=== PATIENT | male | born 1965 | race Caucasian/White ===

== ENCOUNTER 2021-07-04 09:25 | Outpatient (CLI) | payer BC, SELFPAY ==
--- NOTE | 2021-07-04 09:00 | DI.RAD_ITS ---
Exam(s) XR KNEE LT 3V AP,LAT,ANITA EXAM: XR KNEE LT 3V AP,LAT,ANITA CLINICAL HISTORY: L knee pain. TECHNIQUE: 2D digital imaging was performed. COMPARISON: No exams were available for comparison FINDINGS: BONES: No acute fracture is present. No bony destructive lesion is seen. JOINTS: The knee is normally aligned. No joint effusion is seen. Moderate narrowing medial femoral tibial joint and periarticular spurring. Articular spurring, mild patellofemoral joint. SOFT TISSUE: Normal. 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 DATA REPOSITORY: RADIATION DOSE DELIVERED:
== END 2021-07-04 09:26 | disposition home or self-care (01) ==
LOC: DIORS 09:26
PROVIDERS: PCP Family Medicine; Referring Provider Family Medicine; Visit Provider Physician Assistant
DX: M25.562 Pain in left knee (principal); M17.12 Unilateral primary osteoarthritis, left knee
CPT/HCPCS: 73562

== ENCOUNTER 2021-07-22 02:27 | Outpatient (CLI) | payer BC, SELFPAY ==
--- NOTE | 2021-07-22 07:30 | DI.MRI_ITS ---
Exam(s) MR LOWER JOINT LT WO EXAM: MR LOWER JOINT LT WO CLINICAL HISTORY: KNEE PAIN,TEAR OF MEDIAL MENISCUS,S83.242A. TECHNIQUE: Multiplanar multisequence MRI was performed. COMPARISON: CR XR KNEE LT 3V AP,LAT,ANITA from 07/04/2021 FINDINGS: BONES: No fractures identified. Mild marrow edema is seen in the lateral aspect of the lateral femor al condyle in the posterior aspect of the medial tibial plateau. JOINTS: Mild hyperintense signal and thinning of the articular cartilage over the medial patellar fac et is noted with mild subchondral edema. No effusion is present. Periarticular spurring and joint sp cata narrowing is seen in the medial femoral tibial joint. TENDONS: Extensor mechanism: Unremarkable. Medial retinaculum: Unremarkable. Lateral retinaculum: Unremarkable. Popliteus: Unremarkable. MUSCLES: Unremarkable. MENISCI: There is hyperintense oblique signal seen in the body of the medial meniscus consistent with a tear. (Series 9001, image 24). The lateral meniscus is unremarkable. SOFT TISSUES: There is a popliteal cyst present. There is fluid seen in the soft tissues of the post erior medial knee. The findings may represent a ruptured popliteal cyst. LIGAMENTS: Anterior Cruciate: Unremarkable. Posterior Cruciate: Unremarkable. Medial Collateral:Unremarkable. Lateral Collateral: Unremarkable. OTHER: IMPRESSION: 1. Findings suspicious for tear of the body of the medial meniscus. 2. Chondromalacia patella. 3. Findings suggestive of a ruptured popliteal cyst. 4. Bony contusions involving the lateral femoral condyle and the medial tibial plateau. No fracture. 5. Degenerative changes of the knee. DATA REPOSITORY:
== END 2021-07-22 02:47 ==
PROVIDERS: PCP Family Medicine; Visit Provider Student in an Organized Health Care Education/Training Program
DX: M25.562 Pain in left knee (principal); M22.42 Chondromalacia patellae, left knee; M17.12 Unilateral primary osteoarthritis, left knee
CPT/HCPCS: 73721